=== PATIENT | male | born 1965 | race Caucasian/White ===

== ENCOUNTER → 2017-05-28 | Outpatient (CLI) | payer BC ==
[~2017-05-28] MED LIST: AMOXICILLIN500 MG PO; ZYRTEC10 MG PO
[2017-05-28 10:22] LABS: BETA-HCG, TUMOR MARKER < 1.0 mIU/mL (<1)
== END | disposition home or self-care (01) ==
LOC: LAB 09:27
PROVIDERS: Urology
DX: N40.0 Benign prostatic hyperplasia without lower urinary tract symptoms (principal); Z85.47 Personal history of malignant neoplasm of testis

== ENCOUNTER 2017-10-09 04:53 | Emergency (ER) | payer BC ==
[~2017-10-09] VITALS: Ht 167.6 cm; Wt 81.6 kg
[2017-10-09] MEDS ORDERED: CYCLOBENZAPRINE10 MG PO (05:06)
== END 2017-10-09 05:05 | disposition home or self-care (01) ==
LOC: ED 04:53
DX: M54.5 Low back pain (principal)

== ENCOUNTER → 2018-09-12 | Outpatient (CLI) | payer BC ==
[~2018-09-12] MED LIST changes: +CYCLOBENZAPRINE10 MG PO; +Motrin,Rufen800 MG PO; +NEXIUM40 MG PO; +ZOFRAN4 MG PO
--- NOTE | ~2018-09-12 | PF ---
[place], [place] PULMONARY FUNCTION TEST [id number] UN[facility] #: [id number] ROOM: DOCTOR: RAD NEIL MD,BRI BIRTHDATE: [birth year] DOS: 09/12/2018 PULMONARY FUNCTION TEST: The test was ordered by Dr. Nimo Zafar. HISTORY: The patient is a 53-year-old male, height of 66 inches, weight 175 pounds, BMI 28.3 with respiratory symptoms of shortness of breath. The patient has been known with history of sarcoidosis as well. There were no past tobacco use. SPIROMETRY: The FVC of 3.66 liters, 85% predicted value. The FEV1 of 3.13 liters, 91% predicted value. The ratio of FEV1/FVC 85%. Flow volume loop for the patient noted of mild obstructive airway pattern. The lung volumes, thoracic gas volume recorded as 77%, residual volume 67%, total lung capacity 78%. The patient lung diffusion 96%. The patient's airway resistance and passive conductance mildly abnormal, partial improvement after bronchodilators. FINAL IMPRESSION: Combination of mild restrictive and obstructive lung disease was noted. The obstructive lung disease noted, worse with consideration for bronchial asthma. Clinical correlation would be advised with current history of sarcoidosis. BRI LEROY MD CM:PFREPORT:PULMONARY FUNCTION TEST [id number] BRI NEIL MD
== END ==
LOC: CP 10:12
DX: J44.9 Chronic obstructive pulmonary disease, unspecified (principal)

== ENCOUNTER → 2018-09-20 | Day surgery (SDC) | payer BC ==
[~2018-09-20] VITALS: Ht 167.6 cm; Wt 79.4 kg
--- NOTE | ~2018-09-20 | O ---
[place], [place] OPERATIVE NOTE NAME: BEBE BLUE UNIT #: [id number] ROOM: [facility] B[facility] [birth year] DOS: 09/20/2018 GASTROENDOSCOPIC REPORT HISTORY: The patient has presented with chief complaint of dyspepsia, history of need of colonic screening. FAMILY HISTORY: Colonic carcinoma in mother. ALLERGIES: No known medication. PAST SURGICAL HISTORY: Right orchiectomy with carcinoma, lung biopsy consistent with sarcoidosis. PAST MEDICAL HISTORY: Dyspepsia. SOCIAL HISTORY: Nonsmoker, however, drinks 6 pack of beer per week. PROCEDURE: Today's procedure part of investigation panendoscopy plus biopsy. PREMEDICATION: Propofol. SCOPE: Olympus forward-viewing gastroscope Q10 video. REPORT: After putting the patient in left lateral position and application of lubricant to the scope, the scope introduced. Thereafter, under direct visualization, I advanced through the length of esophagus without difficulty. Gastric pouch was entered. Evidence of gastritis was seen. Duodenal bulb, second and third part within normal limits. Antral biopsy obtained for H. pylori. The patient extubated, tolerated the procedure well. IMPRESSION: Gastritis, most likely secondary to Motrin. However, the patient is already on Nexium 40 mg daily. PLAN AND DISCUSSION: We are going to proceed with colonoscopy. GASTROENDOSCOPIC REPORT. The patient has presented with chief complaint of concern about colonic screening. Mother with colonic carcinoma history. PROCEDURE: Today's procedure part of investigation is colonoscopy. PREMEDICATION: Propofol. SCOPE: Olympus forward-viewing colonoscope 10L video. REPORT: After putting the patient in left lateral position and application of lubricant to the scope, the scope was entered advanced throughout the length of colon without difficulty. Base of the cecum explored, appendiceal orifice [place], [place] OPERATIVE NOTE NAME: BEBE BLUE UNIT #: [id number] ROOM: DOCTOR[facility] B[facility] [birth year] identified, ileocecal valve was defined, photographed and scope was gradually withdrawn from ascending, transverse, descending colon. The patient extubated, tolerated the procedure well. IMPRESSION: Normal colonoscopic examination. PLAN AND DISCUSSION: This patient has normal colonoscopic examination. Despite the fact that he has had colonic carcinoma in mother by history. Therefore, I would recommend 5 years colonoscopic evaluation. PREM CHI MD CM:OPRECORD:OPERATIVE NOTE [id number] MARTÍN CHI MD 09/20/18 1515 interface
[2018-09-20 12:31] VITALS: BP 138/81
[2018-09-20 13:22] VITALS: BP 96/63
[2018-09-20 13:33] VITALS: BP 99/61
[2018-09-20 13:40] VITALS: BP 99/61
[2018-09-20 13:52] VITALS: BP 117/78
== END | disposition home or self-care (01) ==
LOC: SDC 09-18 09:30
DX: Z12.11 Encounter for screening for malignant neoplasm of colon (principal); K29.70 Gastritis, unspecified, without bleeding; K21.9 Gastro-esophageal reflux disease without esophagitis; Z79.899 Other long term (current) drug therapy; Z72.89 Other problems related to lifestyle; Z98.890 Other specified postprocedural states; Z80.0 Family history of malignant neoplasm of digestive organs; Z85.47 Personal history of malignant neoplasm of testis; Z87.891 Personal history of nicotine dependence

== ENCOUNTER → 2019-09-30 | Outpatient (CLI) | payer BC | END | disposition home or self-care (01) | LOC: LAB 17:19 | DX: Z12.5 Encounter for screening for malignant neoplasm of prostate (principal) ==

== ENCOUNTER 2019-11-30 09:21 | Emergency (ER) | payer BC ==
[~2019-11-30] VITALS: Ht 167.6 cm; Wt 77.1 kg
[2019-11-30] MEDS ORDERED: AUGMENTIN 875875 MG PO ×2 (10:14→10:22)
[2019-11-30] MEDS ORDERED: IBUPROFEN600 MG PO ×2 (10:14→10:22)
== END 2019-11-30 10:10 | disposition home or self-care (01) ==
LOC: ED 09:21
DX: K62.81 Anal sphincter tear (healed) (nontraumatic) (old) (principal); K21.9 Gastro-esophageal reflux disease without esophagitis; Z79.899 Other long term (current) drug therapy

== ENCOUNTER 2020-12-21 07:55 | Emergency (ER) | payer BC ==
[~2020-12-21] VITALS: Ht 167.6 cm; Wt 79.4 kg
[~2020-12-21 07:55] MED LIST changes: +AUGMENTIN 875875 MG PO; +IBUPROFEN600 MG PO
[2020-12-21] MEDS ORDERED: ZOFRAN4 MG PO (08:28)
== END 2020-12-21 09:15 | disposition home or self-care (01) ==
LOC: ED 07:55
DX: R11.2 Nausea with vomiting, unspecified (principal); Z20.822 Contact with and (suspected) exposure to COVID-19; Z79.899 Other long term (current) drug therapy

== ENCOUNTER 2021-04-28 04:38 | Emergency (ER) | payer BC ==
[~2021-04-28] VITALS: Ht 167.6 cm; Wt 79.4 kg
[2021-04-28] MEDS ORDERED: AMLODIPINE BES2.5 MG PO (04:52)
[2021-04-28] MEDS ORDERED: ESOMEPRAZOLE MA40 M1 PO (04:53)
[2021-04-28 05:59] LABS: BASO % 0.4 % (0.0-1.0); EOS # 0.1 10*3/uL (0.0-0.4); EOS % 1.1 % (1.0-4.0); HEMATOCRIT 41.9 % (42.0-52.0); LYMPH # 0.7 10*3/uL (1.3-4.4); LYMPH % 14.8 % (27.0-41.0); MEAN CORPUSCULAR HGB 30.3 pg (27.0-31.0); MEAN CORPUSCULAR HGB CONC 34.4 g/dl (33.0-37.0); MEAN PLATELET VOLUME 11.3 fl (9.6-12.3); MONO # 0.8 10*3/uL (0.1-1.0); MONO % 17.1 % (3.0-9.0); NEUT % 65.9 % (47.0-73.0); PLATELET COUNT AUTOMATED 188 10*3/uL (130-400); RED BLOOD COUNT 4.76 10*6/uL (4.50-5.90); RED CELL DISTRI WIDTH 12.8 % (0-14.5); WHITE BLOOD COUNT 4.6 10*3/uL (4.8-10.8)
[2021-04-28 06:05] LABS: ALBUMIN 3.8 gm/dl (3.1-4.5); ALKALINE PHOSPHATASE 68 U/L (45-117); BUN 25 mg/dl (7-24); CHLORIDE 105 mmol/L (98-107); CREATININE 1.03 mg/dL (0.70-1.30); POTASSIUM 4.2 mmol/L (3.5-5.1); SGOT/AST 25 IU/L (3-35); SGPT/ALT 34 U/L (12-78); SODIUM 138 mmol/L (136-145); TOTAL PROTEIN 7.6 gm/dL (6.4-8.2)
== END 2021-04-28 06:31 | disposition home or self-care (01) ==
LOC: ED 04:38
PROVIDERS: Internal Medicine
DX: U07.1 COVID-19 (principal); Z79.899 Other long term (current) drug therapy

== ENCOUNTER → 2021-07-05 | Outpatient (CLI) | payer BC ==
[~2021-07-05] MED LIST changes: +AMLODIPINE BES2.5 MG PO; +CIALIS5 MG PO; +ESOMEPRAZOLE MA40 M1 PO; +NAPROXEN500 MG PO
[2021-07-05 13:21] LABS: BASO % 0.4 % (0.0-1.0); EOS # 0.1 10*3/uL (0.0-0.4); EOS % 1.8 % (1.0-4.0); HEMATOCRIT 42.7 % (42.0-52.0); LYMPH # 1.1 10*3/uL (1.3-4.4); LYMPH % 21.8 % (27.0-41.0); MEAN CELL VOLUME 85.7 fl (80.0-94.0); MEAN CORPUSCULAR HGB 30.3 pg (27.0-31.0); MEAN CORPUSCULAR HGB CONC 35.4 g/dl (33.0-37.0); MEAN PLATELET VOLUME 10.5 fl (9.6-12.3); MONO # 0.6 10*3/uL (0.1-1.0); MONO % 11.5 % (3.0-9.0); NEUT # 3.2 10*3/uL (2.3-7.9); NEUT % 64.1 % (47.0-73.0); PLATELET COUNT AUTOMATED 220 10*3/uL (130-400); RED BLOOD COUNT 4.98 10*6/uL (4.50-5.90); RED CELL DISTRI WIDTH 12.9 % (0-14.5)
[2021-07-05 13:51] LABS: ALBUMIN 3.7 gm/dl (3.1-4.5); ALKALINE PHOSPHATASE 56 U/L (45-117); BUN 24 mg/dl (7-24); CHLORIDE 107 mmol/L (98-107); CHOLESTEROL 187 mg/dL (<200); CREATININE 1.02 mg/dL (0.70-1.30); LDL CHOLESTEROL 106 mg/dL (9-159); POTASSIUM 4.2 mmol/L (3.5-5.1); SGOT/AST 25 IU/L (3-35); SGPT/ALT 48 U/L (12-78); SODIUM 139 mmol/L (136-145); TOTAL PROTEIN 7.8 gm/dL (6.4-8.2); TRIGLYCERIDES 129 mg/dl (<150)
[2021-07-05 13:56] LABS: FREE T4 1.02 ng/dl (0.76-1.46)
== END | disposition home or self-care (01) ==
LOC: LAB 12:58
PROVIDERS: ATTEND Internal Medicine
DX: M25.512 Pain in left shoulder (principal); R53.81 Other malaise; R79.89 Other specified abnormal findings of blood chemistry; E55.9 Vitamin D deficiency, unspecified; D51.9 Vitamin B12 deficiency anemia, unspecified; E03.9 Hypothyroidism, unspecified; D52.9 Folate deficiency anemia, unspecified; Z13.1 Encounter for screening for diabetes mellitus; Z13.21 Encounter for screening for nutritional disorder; Z13.220 Encounter for screening for lipoid disorders; Z13.228 Encounter for screening for other metabolic disorders; Z13.6 Encounter for screening for cardiovascular disorders; Z13.89 Encounter for screening for other disorder

== ENCOUNTER 2021-07-15 17:28 | Emergency (ER) | payer BC ==
[~2021-07-15] VITALS: Ht 167.6 cm; Wt 77.1 kg
[~2021-07-15 17:28] MED LIST changes: -CIALIS5 MG PO; -NAPROXEN500 MG PO
[2021-07-15] MEDS ORDERED: CIALIS5 MG PO (17:54)
[2021-07-15 18:25] LABS: BASO % 0.5 % (0.0-1.0); EOS # 0.1 10*3/uL (0.0-0.4); EOS % 1.2 % (1.0-4.0); HEMATOCRIT 40.9 % (42.0-52.0); LYMPH # 1.7 10*3/uL (1.3-4.4); LYMPH % 25.5 % (27.0-41.0); MEAN CELL VOLUME 88.5 fl (80.0-94.0); MEAN CORPUSCULAR HGB 30.7 pg (27.0-31.0); MEAN CORPUSCULAR HGB CONC 34.7 g/dl (33.0-37.0); MEAN PLATELET VOLUME 10.7 fl (9.6-12.3); MONO # 0.7 10*3/uL (0.1-1.0); MONO % 10.4 % (3.0-9.0); NEUT % 62.1 % (47.0-73.0); PLATELET COUNT AUTOMATED 236 10*3/uL (130-400); RED BLOOD COUNT 4.62 10*6/uL (4.50-5.90); RED CELL DISTRI WIDTH 13.2 % (0-14.5); WHITE BLOOD COUNT 6.5 10*3/uL (4.8-10.8)
[2021-07-15 18:38] LABS: ACT PARTIAL THROMBO TIME 25.2 SECONDS (20.0-32.1)
[2021-07-15 18:50] LABS: ALBUMIN 3.9 gm/dl (3.1-4.5); ALKALINE PHOSPHATASE 54 U/L (45-117); BUN 28 mg/dl (7-24); CHLORIDE 105 mmol/L (98-107); CREATININE 0.98 mg/dL (0.70-1.30); POTASSIUM 3.9 mmol/L (3.5-5.1); SGOT/AST 17 IU/L (3-35); SGPT/ALT 35 U/L (12-78); SODIUM 137 mmol/L (136-145); TOTAL PROTEIN 7.7 gm/dL (6.4-8.2)
[2021-07-15 18:52] LABS: TROPONIN I < 0.015 ng/ml (<0.045)
[2021-07-15] MEDS ORDERED: NAPROXEN500 MG PO (21:02)
== END 2021-07-15 21:29 | disposition home or self-care (01) ==
LOC: ED 17:28
PROVIDERS: Emergency Medicine
DX: R07.89 Other chest pain (principal); R09.1 Pleurisy; Z79.899 Other long term (current) drug therapy

== ENCOUNTER → 2021-11-11 | Outpatient (CLI) | payer BC ==
[~2021-11-11] MED LIST changes: +CIALIS5 MG PO; +NAPROXEN500 MG PO
== END | disposition home or self-care (01) ==
LOC: LAB 10:49
PROVIDERS: ATTEND Urology
DX: A63.0 Anogenital (venereal) warts (principal)

== ENCOUNTER → 2022-06-20 | Outpatient (CLI) | payer BC ==
[2022-06-20 15:17] LABS: BASO % 0.5 % (0.0-1.0); EOS # 0.1 10*3/uL (0.0-0.4); EOS % 1.1 % (1.0-4.0); HEMATOCRIT 43.5 % (42.0-52.0); LYMPH % 17.8 % (27.0-41.0); MEAN CELL VOLUME 86.7 fl (80.0-94.0); MEAN CORPUSCULAR HGB 30.5 pg (27.0-31.0); MEAN CORPUSCULAR HGB CONC 35.2 g/dl (33.0-37.0); MEAN PLATELET VOLUME 10.6 fl (9.6-12.3); MONO # 0.5 10*3/uL (0.1-1.0); NEUT % 71.2 % (47.0-73.0); PLATELET COUNT AUTOMATED 254 10*3/uL (130-400); RED BLOOD COUNT 5.02 10*6/uL (4.50-5.90); RED CELL DISTRI WIDTH 12.7 % (0-14.5); WHITE BLOOD COUNT 5.7 10*3/uL (4.8-10.8)
[2022-06-20 15:42] LABS: BUN 18 mg/dl (7-24); CHLORIDE 108 mmol/L (98-107); POTASSIUM 4.3 mmol/L (3.5-5.1); SODIUM 140 mmol/L (136-145)
[2022-06-20 15:52] LABS: ALKALINE PHOSPHATASE 60 U/L (45-117); CHOLESTEROL 163 mg/dL (<200); CREATININE 0.89 mg/dL (0.70-1.30); FREE T4 1.07 ng/dl (0.76-1.46); LDL CHOLESTEROL 98 mg/dL (9-159); SGOT/AST 27 IU/L (3-35); SGPT/ALT 38 U/L (12-78); TOTAL PROTEIN 7.9 gm/dL (6.4-8.2); TRIGLYCERIDES 87 mg/dl (<150)
[2022-06-20 17:04] LABS: VITAMIN D, 25-HYDROXY 40.3 ng/mL (30-100)
== END | disposition home or self-care (01) ==
LOC: LAB 14:53
PROVIDERS: ATTEND Internal Medicine
DX: Z13.0 Encounter for screening for diseases of the blood and blood-forming organs and certain disorders involving the immune mechanism (principal); Z13.1 Encounter for screening for diabetes mellitus; Z13.220 Encounter for screening for lipoid disorders; Z13.21 Encounter for screening for nutritional disorder; Z13.228 Encounter for screening for other metabolic disorders; Z13.6 Encounter for screening for cardiovascular disorders; Z13.89 Encounter for screening for other disorder; Z12.5 Encounter for screening for malignant neoplasm of prostate; R53.81 Other malaise; R79.89 Other specified abnormal findings of blood chemistry; E55.9 Vitamin D deficiency, unspecified; D51.9 Vitamin B12 deficiency anemia, unspecified; D52.9 Folate deficiency anemia, unspecified; E03.9 Hypothyroidism, unspecified

== ENCOUNTER 2022-06-21 20:39 | Emergency (ER) | payer BC ==
[~2022-06-21] VITALS: Ht 1722 cm; Wt 77.1 kg
== END 2022-06-21 21:11 | disposition home or self-care (01) ==
LOC: ED 20:39
DX: S05.02XA Injury of conjunctiva and corneal abrasion without foreign body, left eye, initial encounter (principal); H11.32 Conjunctival hemorrhage, left eye; Z79.899 Other long term (current) drug therapy; X58.XXXA Exposure to other specified factors, initial encounter; Y93.89 Activity, other specified; Y92.89 Other specified places as the place of occurrence of the external cause; Y99.8 Other external cause status

== ENCOUNTER 2022-07-26 03:31 | Emergency (ER) | payer BC ==
[~2022-07-26] VITALS: Ht 177.8 cm; Wt 81.6 kg
[2022-07-26 04:05] LABS: BASO % 0.7 % (0.0-1.0); EOS # 0.2 10*3/uL (0.0-0.4); EOS % 3.9 % (1.0-4.0); HEMATOCRIT 40.6 % (42.0-52.0); LYMPH # 1.7 10*3/uL (1.3-4.4); LYMPH % 29.3 % (27.0-41.0); MEAN CELL VOLUME 86.4 fl (80.0-94.0); MEAN CORPUSCULAR HGB 31.3 pg (27.0-31.0); MEAN CORPUSCULAR HGB CONC 36.2 g/dl (33.0-37.0); MEAN PLATELET VOLUME 10.5 fl (9.6-12.3); MONO # 0.7 10*3/uL (0.1-1.0); MONO % 11.7 % (3.0-9.0); NEUT # 3.2 10*3/uL (2.3-7.9); NEUT % 53.9 % (47.0-73.0); PLATELET COUNT AUTOMATED 237 10*3/uL (130-400); RED CELL DISTRI WIDTH 12.8 % (0-14.5); WHITE BLOOD COUNT 5.9 10*3/uL (4.8-10.8)
[2022-07-26 04:15] LABS: CHLORIDE 104 mmol/L (98-107); POTASSIUM 3.7 mmol/L (3.4-5.1); SODIUM 139 mmol/L (136-145)
[2022-07-26 04:24] LABS: ALKALINE PHOSPHATASE 54 U/L (46-116); BUN 18 mg/dl (9-23); CREATININE 0.86 mg/dL (0.70-1.30)
[2022-07-26 04:25] LABS: SGPT/ALT 121 U/L (10-49)
[2022-07-26] MEDS ORDERED: ZITHROMAX250 MG PO (05:27)
[2022-07-26] MEDS ORDERED: CYCLOBENZAPRINE5 M3 PO (05:27)
[2022-07-26] MEDS ORDERED: PREDNISONE20 M1 PO (05:27)
== END 2022-07-26 05:41 | disposition home or self-care (01) ==
LOC: ED 03:31
PROVIDERS: Emergency Medicine
DX: R07.89 Other chest pain (principal); M62.830 Muscle spasm of back; R09.1 Pleurisy; Z98.890 Other specified postprocedural states

== ENCOUNTER 2023-11-12 17:09 | Emergency (ER) | payer BC ==
[~2023-11-12] VITALS: Ht 167.6 cm; Wt 77.1 kg
[~2023-11-12 17:09] MED LIST changes: +CYCLOBENZAPRINE5 M3 PO; +PREDNISONE20 M1 PO; +ZITHROMAX250 MG PO
[2023-11-12 17:43] LABS: BASO % 0.4 % (0.0-1.0); EOS # 0.1 10*3/uL (0.0-0.4); EOS % 0.6 % (1.0-4.0); HEMATOCRIT 43.8 % (42.0-52.0); LYMPH # 1.7 10*3/uL (1.3-4.4); LYMPH % 21.1 % (27.0-41.0); MEAN CELL VOLUME 89.2 fl (80.0-94.0); MEAN CORPUSCULAR HGB 30.1 pg (27.0-31.0); MEAN CORPUSCULAR HGB CONC 33.8 g/dl (33.0-37.0); MEAN PLATELET VOLUME 10.5 fl (9.6-12.3); MONO # 0.8 10*3/uL (0.1-1.0); NEUT # 5.4 10*3/uL (2.3-7.9); NEUT % 67.5 % (47.0-73.0); PLATELET COUNT AUTOMATED 284 10*3/uL (130-400); RED BLOOD COUNT 4.91 10*6/uL (4.50-5.90); RED CELL DISTRI WIDTH 13.1 % (0-14.5)
[2023-11-12 17:53] LABS: ACT PARTIAL THROMBO TIME 24.3 SECONDS (20.0-32.1)
[2023-11-12 18:01] LABS: ALKALINE PHOSPHATASE 59 U/L (46-116); BUN 25 mg/dl (9-23); CHLORIDE 105 mmol/L (98-107); POTASSIUM 3.6 mmol/L (3.4-5.1); SGPT/ALT 34 U/L (5-49); TOTAL PROTEIN 7.7 gm/dL (6.0-8.0)
[2023-11-12] MEDS ORDERED: PREDNISONE20 M1 PO (20:34)
[2023-11-12] MEDS ORDERED: methylPREDNISolone sod succ 125 MG VIAL IM ONE (20:35)
== END 2023-11-12 20:44 | disposition home or self-care (01) ==
LOC: ED 17:09
PROVIDERS: Nurse Practitioner Family
DX: R07.89 Other chest pain (principal); K21.9 Gastro-esophageal reflux disease without esophagitis; Z98.890 Other specified postprocedural states

== ENCOUNTER → 2024-03-07 | Outpatient (CLI) | payer BC | END | disposition home or self-care (01) | LOC: CARD 01:12 | PROVIDERS: ATTEND Internal Medicine | DX: R07.9 Chest pain, unspecified (principal) ==

== ENCOUNTER 2024-05-26 21:48 | Emergency (ER) | payer BC ==
[~2024-05-26] VITALS: Ht 167.6 cm; Wt 77.1 kg
[2024-05-26] MEDS ORDERED: METOPROLOL SUCC50 M1 PO (22:02)
[2024-05-26] MEDS ORDERED: CYCLOBENZAPRINE5 M3 PO (22:26)
[2024-05-26] MEDS ORDERED: Ketorolac Tromethamine 30 MG/ML VIAL IM ONE (22:30)
[2024-05-26] MEDS ORDERED: methylPREDNISolone sod succ 125 MG VIAL IM ONE (22:30)
== END 2024-05-26 22:49 | disposition home or self-care (01) ==
LOC: ED 21:48
DX: S39.012A Strain of muscle, fascia and tendon of lower back, initial encounter (principal); M25.552 Pain in left hip; K21.9 Gastro-esophageal reflux disease without esophagitis; Z98.890 Other specified postprocedural states; X50.1XXA Overexertion from prolonged static or awkward postures, initial encounter; Y93.43 Activity, gymnastics; Y92.39 Other specified sports and athletic area as the place of occurrence of the external cause; Y99.8 Other external cause status

== ENCOUNTER 2024-06-07 12:29 | Emergency (ER) | payer BC ==
[~2024-06-07] VITALS: Ht 167.6 cm; Wt 77.1 kg
[~2024-06-07 12:29] MED LIST changes: +METOPROLOL SUCC50 M1 PO
[2024-06-07] MEDS ORDERED: methylPREDNISolone sod succ 125 MG VIAL IM ONE (12:55)
[2024-06-07] MEDS ORDERED: Ketorolac Tromethamine 30 MG/ML VIAL IM ONE (12:55)
[2024-06-07] MEDS ORDERED: KETOROLAC10 MG PO (13:00)
== END 2024-06-07 13:05 | disposition home or self-care (01) ==
LOC: ED 12:29
DX: M54.42 Lumbago with sciatica, left side (principal); M79.605 Pain in left leg; K21.9 Gastro-esophageal reflux disease without esophagitis; Z98.890 Other specified postprocedural states

== ENCOUNTER 2024-06-10 06:41 | Emergency (ER) | payer BC ==
[~2024-06-10] VITALS: Ht 167.6 cm; Wt 77.1 kg
[~2024-06-10 06:41] MED LIST changes: +KETOROLAC10 MG PO
[2024-06-10] MEDS ORDERED: Ketorolac Tromethamine 30 MG/ML VIAL IM ONE (07:00)
[2024-06-10] MEDS ORDERED: Cyclobenzaprine Hydrochlorid 10 MG TAB PO ONE (07:00)
[2024-06-10] MEDS ORDERED: Dexamethasone Sodium Phospha 20 MG/5 ML VIAL IM ONE (07:00)
[2024-06-10] MEDS ORDERED: MEDROL DOSEPAK4 MG PO (07:29)
[2024-06-10] MEDS ORDERED: CYCLOBENZAPRINE5 M3 PO (07:29)
[2024-06-10] MEDS ORDERED: LIDOCAINE PAIN1 EACH T (07:29)
[2024-06-10] MEDS ORDERED: KETOROLAC10 MG PO (07:29)
== END 2024-06-10 07:48 | disposition home or self-care (01) ==
LOC: ED 06:41
DX: M54.42 Lumbago with sciatica, left side (principal); K21.9 Gastro-esophageal reflux disease without esophagitis; Z98.890 Other specified postprocedural states

== ENCOUNTER → 2024-06-19 | Outpatient (CLI) | payer BC ==
[~2024-06-19] MED LIST changes: +LIDOCAINE PAIN1 EACH T; +MEDROL DOSEPAK4 MG PO
== END | disposition home or self-care (01) ==
LOC: MRI 08:25
PROVIDERS: ATTEND Internal Medicine
DX: M51.16 Intervertebral disc disorders with radiculopathy, lumbar region (principal); M51.379 Other intervertebral disc degeneration, lumbosacral region without mention of lumbar back pain or lower extremity pain; M48.07 Spinal stenosis, lumbosacral region; M41.86 Other forms of scoliosis, lumbar region

== ENCOUNTER → 2024-06-27 | Outpatient (CLI) | payer BC ==
[~2024-06-27] MED LIST changes: +GADOTERATE MEGLUMINE 7.5 MMOL/15 ML VIAL IV ONE
== END | disposition home or self-care (01) ==
LOC: MRI 09:29
PROVIDERS: ATTEND Internal Medicine
DX: M47.26 Other spondylosis with radiculopathy, lumbar region (principal); M43.16 Spondylolisthesis, lumbar region; M51.379 Other intervertebral disc degeneration, lumbosacral region without mention of lumbar back pain or lower extremity pain